=== PATIENT | female | born 2000 | race Caucasian/White ===

== ENCOUNTER 2025-02-24 13:04 | Emergency (ER) | payer OTHER, SELFPAY ==
[2025-02-24 13:18] VITALS: BP 101/65; PULSE 130; RESP 16; TEMP 37.4; O2SAT 97; BMI 37.2
--- NOTE | 2025-02-24 13:20 | ED_ITS ---
HPI - Nausea/Vomiting/Diarrhea General Chief complaint: Nausea/Vomiting/Diarrhea Stated complaint: Vomiting Diarrhea Time Seen by Provider: 02/24/25 14:57 Related Data Previous Rx's ?Medication ?Instructions ?Recorded ondansetron 4 mg disintegrating 4 mg PO Q6-8H PRN nausea and 02/24/25 tablet vomiting #14 tabs Allergies Allergy/AdvReac Type Severity Reaction Status Date / Time From Augmentin Allergy Mild RASH Uncoded 02/24/25 13:19 PMFSH Social History Social History Advance Directives: No Advance Directives Information Provided: Yes Physical Exam 2 Vital Signs: Vital Signs: Last Vital Signs Temp 97.4 F 02/24/25 17:47 Pulse 109 H 02/24/25 17:47 Resp 16 02/24/25 17:47 BP 107/58 L 02/24/25 17:47 Pulse Ox 96 02/24/25 17:47 O2 Del Method Room Air 02/24/25 17:47 BMI result Body Mass Index 37.2 Course Course Course Narrative: 02/24/25 1321 SIS [place] This is a Rapid Medical Examination (RME) performed by Astrid Em PA-C in triage. Full HPI, ROS, assessment and treatment plan per primary provider in the Main ED. Hx: 24 yo F here for eval of N/V/D, dizziness, myalgias, chills x2 days. no sick contacts. PE/vitals: well appearing. Plan: labs, hcg, viral swabs Medications Administered Discontinued Medications Generic Name Dose Route Start Last Admin Trade Name Freq PRN Reason Stop Dose Admin Sodium Chloride 1,000 mls @ 999 mls/hr 02/24/25 15:09 02/24/25 17:11 Ns IV 02/24/25 16:09 Infused .Q1H1M STA Infusion Ketorolac Tromethamine 15 mg 02/24/25 15:09 02/24/25 15:17 Ketorolac Tromethamine 15 Mg/Ml Vial IVPUSH 02/24/25 15:10 15 mg ONCE STA Administration Loperamide HCl 4 mg 02/24/25 15:09 02/24/25 16:03 Loperamide Hcl 2 Mg Capsule PO 02/24/25 15:10 4 mg ONCE ONE Administration Ondansetron HCl 4 mg 02/24/25 15:09 02/24/25 15:17 Ondansetron Hcl 4 Mg/2 Ml Vial IVPUSH 02/24/25 15:10 4 mg ONCE ONE Administration Medical Decision Making Lab Data 02/24/25 13:56 02/24/25 14:21 Labs: Lab Results 02/24/25 02/24/25 Range/Units 13:56 14:21 WBC 18.4 H (4.8-10.8) X10*3/uL RBC 5.02 (4.20-5.50) X10*6/uL Hgb 13.5 (12.0-16.0) g/dl Hct 41.4 (37.0-47.0) % MCV 82.5 (80.0-98.0) fL MCH 26.9 L (27.0-33.0) pg MCHC 32.6 (31.0-35.0) g/dl RDW 13.7 (11.0-16.0) % Plt Count 253 (160-400) X10*3/uL MPV 9.8 (9.4-12.3) fL Immature Gran % (Auto) 0.5 H (0.0-0.4) % Neut % (Auto) 90.8 H (45-73) % Lymph % (Auto) 3.8 L (20-40) % [place] % (Auto) 4.6 (2-11) % Eos % (Auto) 0.1 (0-4) % Baso % (Auto) 0.2 (0-2) % Lymph # (Auto) 0.7 L (1.2-4.9) X10*3/uL [place] # (Auto) 0.9 (0.1-1.2) X10*3/uL Eos # (Auto) 0.0 (0.0-0.4) X10*3/uL Baso # (Auto) 0.0 (0.0-0.2) X10*3/uL Abs Immat Gran (auto) 0.10 H (0.00-0.03) X10*3/uL Absolute Neuts (auto) 16.7 H (2.0-8.3) x10*3/uL Absolute Nucleated RBC 0.000 (0.0-0.012) X10*3/uL Nucleated RBC % (auto) 0.0 (0.0-0.2) /100WBC Smear Tech's Comments VERIFIED Sodium 136 (135-145) mmol/L Potassium 3.6 (3.3-5.1) mmol/L Chloride 107 (96-108) mmol/L Carbon Dioxide 23 (22-29) mmol/L Anion Gap 10 L (12-20) BUN 5 L (9-16) mg/dL Creatinine 0.77 (0.5-1.4) mg/dL Estim Creat Clear Calc 122.6 Estimated GFR > 60 Random Glucose 104 (60-115) mg/dL Calcium 8.6 (8.4-10.2) mg/dL Magnesium 1.6 (1.6-2.6) mg/dL Total Bilirubin 0.5 (0.0-1.0) mg/dL AST 25 (5-31) U/L ALT 27 (0-31) U/L Alkaline Phosphatase 92 (39-117) U/L Total Protein 7.0 (6.5-8.0) g/dL Albumin 4.0 (3.5-5.0) g/dL Lipase 12 (8-78) U/L Beta HCG, Quant < 2 mIU/mL Influenza Type A (PCR) NEGATIVE (Negative) Influenza Type B (PCR) NEGATIVE (Negative) RSV RNA Qual (PCR) NEGATIVE (Negative) SARS-CoV-2 RNA (RT-PCR) NEGATIVE (Negative) Discharge Plan Discharge Clinical Impression: Acute viral syndrome Patient Disposition: Home, Self-Care Instructions: Viral Syndrome (ED) Additional Instructions: Your blood work revealed an elevated white blood cell count otherwise was unremarkable. Your symptoms are either consistent with a viral infection or food poisoning. Both of the were self-limiting and will get better over time. Both are treated symptomatically. Take ibuprofen 200 mg pills, 2 pills every 6 hours as needed for pain or fever. Take Tylenol (acetaminophen) 500 mg pills, 2 pills every 6 hours as needed for pain or fever. Take Zofran ODT 4 mg pills, 1 pill dissolved in your mouth every 8 hours as needed for nausea and vomiting. For diarrhea I want you to take Imodium 2 mg pills. ?Take 2 pills after the 1st loose, diarrheal stool then 1 pill after each loose, diarrheal stool up to 8 pills per day. ?This usually stops diarrhea within 24 hours. Follow-up with your doctor in 2 days. Please return to the emergency department if your symptoms get worse or if you develop any symptoms that are concerning to you. Prescriptions: New ondansetron 4 mg tablet,disintegrating 4 mg PO Q6-8H PRN (Reason: nausea and vomiting) Qty: 14 0RF Interventions: ED Discharge Assessment Last Done: 02/24/25 17:47 Discharge Date/Time: 02/24/25 17:48 Print Language: Maldivian
[2025-02-24 13:59] VITALS: BP 108/56; PULSE 114; RESP 18; TEMP 37; O2SAT 96
[2025-02-24 14:07] LABS: Basophils Percent Auto 0.2 % (0-2); Eosinophils Percent Auto 0.1 % (0-4); Hematocrit 41.4 % (37.0-47.0); Hemoglobin 13.5 g/dl (12.0-16.0); Imm Gran Pct Auto 0.5 % (0.0-0.4); Lymphocytes Absolute Auto 0.7 X10*3/uL (1.2-4.9); Lymphocytes Percent Auto 3.8 % (20-40); MANUAL DIFF FLAG SCAN; Mean Corpuscular HGB Conc 32.6 g/dl (31.0-35.0); Mean Corpuscular Hemoglobin 26.9 pg (27.0-33.0); Mean Corpuscular Volume 82.5 fL (80.0-98.0); Mean Platelet Volume 9.8 fL (9.4-12.3); Monocytes Absolute Auto 0.9 X10*3/uL (0.1-1.2); Monocytes Percent Auto 4.6 % (2-11); Neutrophils Absolute Auto 16.7 x10*3/uL (2.0-8.3); Neutrophils Percent Auto 90.8 % (45-73); Platelet Count 253 X10*3/uL (160-400); Red Blood Count 5.02 X10*6/uL (4.20-5.50); Red Cell Distribution Width 13.7 % (11.0-16.0); SCAN SMEAR FLAG 1; White Blood Count 18.4 X10*3/uL (4.8-10.8)
[2025-02-24 14:24] LABS: SLIDE REVIEW VERIFIED
[2025-02-24 14:46] LABS: Alanine Aminotransferase 27 U/L (0-31); Anion Gap 10 (12-20); Aspartate Amino Transferase 25 U/L (5-31); Bilirubin Total 0.5 mg/dL (0.0-1.0); Blood Urea Nitrogen 5 mg/dL (9-16); Calcium 8.6 mg/dL (8.4-10.2); Carbon Dioxide 23 mmol/L (22-29); Chloride 107 mmol/L (96-108); Creatinine Clr Calc Pharmacy 122.6; Estimated Glomerular Filt Rate > 60; Glucose Random 104 mg/dL (60-115); Magnesium 1.6 mg/dL (1.6-2.6); Potassium 3.6 mmol/L (3.3-5.1); Sodium 136 mmol/L (135-145)
[2025-02-24 14:47] LABS: Alkaline Phosphatase 92 U/L (39-117); HCG Quantitative < 2 mIU/mL; Lipase 12 U/L (8-78)
[2025-02-24] MEDS: 0.9 % Sodium Chloride 1,000 ML 999 ML IV (15:17)
[2025-02-24] MEDS: ondansetron HCL 4 MG/2 ML VIAL IVPUSH (15:17)
[2025-02-24] MEDS: Ketorolac Tromethamine 15 MG/ML VIAL IVPUSH (15:17)
[2025-02-24 15:20] LABS: Influenza A PCR NEGATIVE (Negative); Influenza B PCR NEGATIVE (Negative); Resp Syncy Virus RNA Qual PCR NEGATIVE (Negative); SARS COV2 PCR INHOUSE NEGATIVE (Negative)
--- NOTE | 2025-02-24 15:28 | PC.NURSE ---
Pt to ED with c/o N/V/D and 5/10 abdominal pain. A/O x 3, calm and cooperative. Resting comfortably on stretcher, #20 placed in right hand. Labs collected and sent, IVF infusing per NOV. IV Zofran and toradol admin, will wait until pt can tolerte PO before administering anti-diarrheal per .
[2025-02-24] MEDS: Loperamide HCl 2 MG CAPSULE 4 MG PO (16:03)
[2025-02-24 17:34] VITALS: BP 107/58; PULSE 109; RESP 16; TEMP 36.3; O2SAT 96
[2025-02-24 17:47] VITALS: BP 107/58; PULSE 109; RESP 16; TEMP 36.3; O2SAT 96
== END 2025-02-24 17:48 | disposition home or self-care (01) ==
PROVIDERS: Physician Assistant Medical; Emergency Provider Emergency Medicine Emergency Medical Services; PCP Nurse Practitioner Family
DX: B34.9 Viral infection, unspecified (principal); R19.7 Diarrhea, unspecified; R11.2 Nausea with vomiting, unspecified; Z03.818 Encounter for observation for suspected exposure to other biological agents ruled out
CPT/HCPCS: 0241U; 80053; 83690; 83735; 84702; 85025; 96361; 96374; 96375; 99284; J1885; J2405